=== PATIENT | male | born 1950 | race Two or more races ===

== ENCOUNTER 2024-04-22 11:56 | Inpatient (IN) | payer MEDICARE, MEDICAID ==
[2024-04-22] VITALS (7 sets, daily range): BP systolic 95–117; BP diastolic 59–97; PULSE 84–118; RESP 18–22; TEMP 98–98.8; O2SAT 92–100
[~2024-04-22] VITALS: Ht 175.3 cm; Wt 64.0 kg
[2024-04-22] MEDS: SODIUM CHLORIDE 0.9% 1,000 ML IV ONE ×2 (12:12→13:13)
[2024-04-22 12:23] LABS: ABG BASE EXCESS -1.9 mmol/L (-2.0-3.0); ABG CARBOXYHEMOGLOBIN 0.8 % (0.5-1.5); ABG HCO3 23.1 mmol/L (21.0-28.0); ABG OXYGEN CONTENT 18.6 mL/dL (15.0-23.0); ABG OXYGEN SATURATION 93.2 % (94.0-98.0); ABG OXYHEMOGLOBIN 91.5 % (94.0-98.0); ABG PCO2 37 mmHg (32.0-48.0); ABG PH 7.411 (7.350-7.450); ABG TOTAL HEMOGLOBIN 14.5 G/dL (13.5-17.5); SOURCE, BLOOD GAS ARTERIAL; TEMPERATURE, FAHRENHEIT, BG 97.9 FAHREN (96.0-98.6)
[2024-04-22 12:25] LABS: ABG A-A DIFF O2 614.4 mmHg (10-20.0); ALLEN TEST, BLOOD GAS Positive; INSPIRATORY TIME, BG 0.9 SEC; O2 DEVICE,BLOOD GAS BIPAP (ROOM AIR); PRESSURE SUPPORT, BG 6 cm H2O; SITE, BLOOD GAS RT RADIAL; SPONTANEOUS VT, BG 564 ml
[2024-04-22 12:41] LABS: APPEARANCE,URINE CLEAR (CLEAR); BILIRUBIN,URINE NEGATIVE (NEGATIVE); COLOR,URINE YELLOW (YELLOW); GLUCOSE, URINE (UA) NEGATIVE (NEGATIVE); KETONES,URINE NEGATIVE (NEGATIVE); LEUKOCYTE ESTERASE ,URINE NEGATIVE (NEGATIVE); NITRATE,URINE NEGATIVE (NEGATIVE); OCCULT BLOOD,URINE LARGE (NEGATIVE); PH,URINE 6.5 (5.0-8.0); PH,URINE DRUG SCREEN 6.5 (5.0-8.0); PROTEIN,URINE TRACE mg/dL (NEGATIVE); SPECIFIC GRAVITIY, URINE 1.019 (1.003-1.030); UROBILINOGEN,URINE <=1.0 mg/dL (<=1.0)
[2024-04-22 12:43] LABS: BASOPHILS % (AUTO) 0.1 % (0.0-2.0); EOSINOPHILS % (AUTO) 0.1 % (1.0-6.0); HEMATOCRIT 42.5 % (41-53); HEMOGLOBIN 14.1 g/dL (13.5-17.5); LYMPHOCYTES % (AUTO) 5.6 % (22.0-44.0); MEAN CORPUSCULAR HEMOGLOBIN 31.2 pg (26.0-34.0); MEAN CORPUSCULAR HGB CONC 33.2 G/dL (31.0-37.0); MEAN CORPUSCULAR VOLUME 94 fL (80-100); MONOCYTES # (AUTO) 1.9 K/uL (0.1-1.0); MONOCYTES % (AUTO) 10.4 % (2.0-9.0); NEUTROPHILS # (AUTO) 15.4 K/uL (1.8-7.7); NEUTROPHILS % (AUTO) 83.8 % (40.0-70.0); PLATELET COUNT (AUTO) 347 K/uL (150-450); RED BLOOD CELL COUNT(AUTO) 4.53 MIL/uL (4.50-5.90); RED CELL DISTRIBUTION WIDTH 15.3 % (11.5-14.5); WHITE BLOOD COUNT (AUTO) 18.4 K/uL (4.5-11.0)
[2024-04-22 12:48] LABS: ALCOHOL, URINE DRUG SCREEN NEGATIVE (NEGATIVE); AMPHET/METH SCREEN,URINE NEGATIVE (NEGATIVE); BARBITURATE SCREEN, URINE NEGATIVE (NEGATIVE); BENZODIAZEPINES SCREEN,URINE NEGATIVE (NEGATIVE); CANNABINOID SCREEN,URINE NEGATIVE (NEGATIVE); COCAINE SCREEN,URINE NEGATIVE (NEGATIVE); METHADONE SCREEN, URINE NEGATIVE (NEGATIVE); OPIATE SCREEN,URINE NEGATIVE (NEGATIVE); PHENCYCLIDINE SCREEN,URINE NEGATIVE (NEGATIVE)
[2024-04-22 13:01] LABS: ANION GAP 8 mmol/L (8-16); CARBON DIOXIDE 30 mmol/L (22-29); CHLORIDE 103 mmol/L (98-107); CREATININE 1.57 mg/dL (0.60-1.30); GLOMERULAR FILTR. RATE CALC 44 mL/min (>60); GLUCOSE,RANDOM 184 mg/dL (70-110); POTASSIUM 4.8 mmol/L (3.5-5.1); SODIUM SERUM 141 mmol/L (136-145); UREA NITROGEN, BLOOD 41 mg/dL (7-18)
[2024-04-22 13:06] LABS: TROPONIN I-HIGH SENSITIVITY 12 ng/L (<76)
[2024-04-22 13:07] LABS: ALANINE AMINOTRANSFERASE 29 U/L (12-78); ALBUMIN 3.2 g/dL (3.4-5.0); ALKALINE PHOSPHATASE 76 U/L (46-116); ASPARTATE AMINOTRANSFERASE 23 U/L (15-37); BILIRUBIN,TOTAL 0.7 mg/dL (0.1-1.0); TOTAL PROTEIN, SERUM 6.9 g/dL (6.4-8.2)
[2024-04-22] MEDS: CEFEPIME HCL 1 GM in DEXTROSE 5%-WATER 50 ML IV ONE (13:11)
[2024-04-22 13:16] LABS: WBC,URINE None Seen /HPF (0-5)
[2024-04-22 13:17] LABS: BACTERIA,URINE None Seen /HPF (None Seen); RBC,URINE 26-50 /HPF (0-2)
[2024-04-22 13:17] LABS: LACTIC ACID 1.8 mmol/L (0.4-2.0)
[2024-04-22] MEDS: ACETAMINOPHEN 650 MG RECTAL SUPPOSITORY PR ONE (14:31)
[2024-04-22] MEDS ORDERED: BISACODYL 10 MG RECTAL RECTAL SUPPOSITORY PR PRN (17:45)
[2024-04-22] MEDS ORDERED: ACETAMINOPHEN 325 MG TABLET PO PRN (17:45)
[2024-04-22] MEDS ORDERED: ZOLPIDEM TARTRATE 5 MG TABLET PEG PRN (17:45)
[2024-04-22] MEDS ORDERED: MORPHINE SULFATE 2 MG/ML SYRINGE IVP PRN (17:45)
[2024-04-22] MEDS ORDERED: HYDROCODONE/ACETAMINOPHEN 5-325 MG TABLET PO PRN (17:45)
[2024-04-22] MEDS ORDERED: MAGNESIUM HYDROXIDE SUSPENSION 30 ML UDCUP PEG PRN (17:45)
[2024-04-22] MEDS ORDERED: ONDANSETRON HCL 4 MG/2 ML VIAL IVP PRN (17:45)
[2024-04-22] MEDS ORDERED: NA P133E8 PR (17:47)
[2024-04-22] MEDS ORDERED: ATOR20TA PO (17:47)
[2024-04-22] MEDS ORDERED: BISA-151 PO (17:47)
[2024-04-22] MEDS ORDERED: HYDR10TA31 PO (17:47)
[2024-04-22] MEDS ORDERED: ACET650S24 PR (17:47)
[2024-04-22] MEDS ORDERED: ACET325S20 PR (17:47)
[2024-04-22] MEDS ORDERED: ASPI-1450 PO (17:47)
[2024-04-22] MEDS ORDERED: TUBE5VIA TD (17:47)
[2024-04-22] MEDS ORDERED: HYDR25TA84 PO (17:47)
[2024-04-22] MEDS ORDERED: MAGN-169 PO (17:47)
[2024-04-22] MEDS ORDERED: APIX5TAB PO (17:47)
[2024-04-22] MEDS: SODIUM CHLORIDE 0.9% 1,000 ML IV SCH (18:43)
[2024-04-22] MEDS: SODIUM CHLORIDE 0.9% 250 ML IV ONE (18:44)
[2024-04-22] MEDS: SODIUM CHLORIDE 0.9% 500 ML IV ONE ×2 (18:45→20:03)
[2024-04-22] MEDS: PIPERACILLIN/TAZO 3.375 GM/D5W 50 ML IV SCH (20:03)
[2024-04-22] MEDS: VANCOMYCIN 1.25 GM/WATER(PEG) 250 ML IV ONE (20:04)
[2024-04-22] MEDS: APIXABAN 5 MG TABLET PEG SCH (20:18)
[2024-04-22] MEDS: DOCUSATE SODIUM 100 MG CAPSULE PEG SCH (20:18)
[2024-04-22] MEDS: ATORVASTATIN CALCIUM 20 MG TABLET PEG SCH (20:18)
[2024-04-23 03:10] VITALS: BP 107/60; PULSE 88; RESP 20; TEMP 98.6; O2SAT 98
[2024-04-23 06:51] LABS: BASOPHILS % (AUTO) 0.3 % (0.0-2.0); EOSINOPHILS % (AUTO) 1.1 % (1.0-6.0); HEMATOCRIT 33.3 % (41-53); HEMOGLOBIN 11.4 g/dL (13.5-17.5); LYMPHOCYTES # (AUTO) 1.9 K/uL (1.0-4.8); LYMPHOCYTES % (AUTO) 13.6 % (22.0-44.0); MEAN CORPUSCULAR HEMOGLOBIN 31.6 pg (26.0-34.0); MEAN CORPUSCULAR HGB CONC 34.2 G/dL (31.0-37.0); MEAN CORPUSCULAR VOLUME 93 fL (80-100); MONOCYTES % (AUTO) 6.8 % (2.0-9.0); NEUTROPHILS # (AUTO) 11.2 K/uL (1.8-7.7); NEUTROPHILS % (AUTO) 78.2 % (40.0-70.0); PLATELET COUNT (AUTO) 270 K/uL (150-450); RED CELL DISTRIBUTION WIDTH 14.6 % (11.5-14.5); WHITE BLOOD COUNT (AUTO) 14.3 K/uL (4.5-11.0)
[2024-04-23 06:57] LABS: ANION GAP 8 mmol/L (8-16); CALCIUM, TOTAL 7.7 mg/dL (8.8-10.5); CARBON DIOXIDE 26 mmol/L (22-29); CHLORIDE 109 mmol/L (98-107); GLOMERULAR FILTR. RATE CALC > 60 mL/min (>60); GLUCOSE,RANDOM 92 mg/dL (70-110); POTASSIUM 3.6 mmol/L (3.5-5.1); SODIUM SERUM 143 mmol/L (136-145); UREA NITROGEN, BLOOD 26 mg/dL (7-18)
[2024-04-23 08:30] VITALS: BP 115/58; PULSE 83; RESP 19; TEMP 98.2; O2SAT 98
[2024-04-23] MEDS: VANCOMYCIN 1GM/WATER(PEG/NADA) 200 ML IV SCH (08:46)
[2024-04-23] MEDS: PANTOPRAZOLE SODIUM 40 MG/VIAL IVP SCH (08:47)
[2024-04-23] MEDS: ASPIRIN 81 MG CHEWABLE TABLET PEG ONE (08:47)
[2024-04-23 12:02] VITALS: BP 102/36; PULSE 77; RESP 18; TEMP 98; O2SAT 96
[2024-04-23 15:49] VITALS: BP 111/61; PULSE 98; RESP 19; TEMP 98.1; O2SAT 100
[2024-04-23 20:00] VITALS: BP 109/71; PULSE 86; RESP 19; TEMP 98; O2SAT 98
[2024-04-23] MEDS: VANCOMYCIN 750 MG/WATER(PEG) 150 ML IV SCH (20:08)
[2024-04-23 23:43] VITALS: BP 127/62; PULSE 78; RESP 19; TEMP 98.3; O2SAT 95
[2024-04-23] MEDS ORDERED: SODIUM CHLORIDE 0.9% 250 ML IV ONE (23:48)
[2024-04-24] VITALS (7 sets, daily range): BP systolic 113–179; BP diastolic 66–99; PULSE 84–99; RESP 18–19; TEMP 97.4–98.2; O2SAT 95–97
[2024-04-24 06:53] LABS: ANION GAP 9 mmol/L (8-16); CALCIUM, TOTAL 7.7 mg/dL (8.8-10.5); CARBON DIOXIDE 26 mmol/L (22-29); CHLORIDE 105 mmol/L (98-107); CREATININE 0.86 mg/dL (0.60-1.30); GLOMERULAR FILTR. RATE CALC > 60 mL/min (>60); GLUCOSE,RANDOM 104 mg/dL (70-110); POTASSIUM 3.4 mmol/L (3.5-5.1); SODIUM SERUM 140 mmol/L (136-145); UREA NITROGEN, BLOOD 17 mg/dL (7-18)
[2024-04-24] MEDS: POTASSIUM CHLORIDE 10% 40 MEQ/30 ML LIQUID UDCUP PEG ONE (08:53)
[2024-04-24 13:46] LABS: BASOPHILS % (AUTO) 0.9 % (0.0-2.0); EOSINOPHILS % (AUTO) 4.6 % (1.0-6.0); HEMATOCRIT 35.4 % (41-53); HEMOGLOBIN 11.9 g/dL (13.5-17.5); LYMPHOCYTES # (AUTO) 1.7 K/uL (1.0-4.8); LYMPHOCYTES % (AUTO) 13.7 % (22.0-44.0); MEAN CORPUSCULAR HEMOGLOBIN 31.1 pg (26.0-34.0); MEAN CORPUSCULAR HGB CONC 33.5 G/dL (31.0-37.0); MEAN CORPUSCULAR VOLUME 93 fL (80-100); MONOCYTES # (AUTO) 1.1 K/uL (0.1-1.0); MONOCYTES % (AUTO) 8.7 % (2.0-9.0); NEUTROPHILS # (AUTO) 8.8 K/uL (1.8-7.7); NEUTROPHILS % (AUTO) 72.1 % (40.0-70.0); PLATELET COUNT (AUTO) 323 K/uL (150-450); RED BLOOD CELL COUNT(AUTO) 3.81 MIL/uL (4.50-5.90); RED CELL DISTRIBUTION WIDTH 14.8 % (11.5-14.5); WHITE BLOOD COUNT (AUTO) 12.2 K/uL (4.5-11.0)
[2024-04-25] VITALS (9 sets, daily range): BP systolic 120–161; BP diastolic 69–87; PULSE 92–100; RESP 18–22; TEMP 97.3–98.8; O2SAT 91–96
[2024-04-25 06:48] LABS: ANION GAP 9 mmol/L (8-16); CALCIUM, TOTAL 8.1 mg/dL (8.8-10.5); CARBON DIOXIDE 26 mmol/L (22-29); CHLORIDE 104 mmol/L (98-107); CREATININE 0.75 mg/dL (0.60-1.30); GLOMERULAR FILTR. RATE CALC > 60 mL/min (>60); GLUCOSE,RANDOM 117 mg/dL (70-110); POTASSIUM 3.4 mmol/L (3.5-5.1); SODIUM SERUM 139 mmol/L (136-145); UREA NITROGEN, BLOOD 10 mg/dL (7-18)
[2024-04-25 07:02] LABS: VANCOMYCIN,RANDOM 10.4 mcg/mL (25.0-50.0)
[2024-04-25] MEDS: POTASSIUM CHLORIDE 10% 40 MEQ/30 ML LIQUID UDCUP PEG ONE ×2 (08:40→11:38)
[2024-04-25 10:03] LABS: BASOPHILS % (AUTO) 0.5 % (0.0-2.0); EOSINOPHILS % (AUTO) 3.4 % (1.0-6.0); HEMATOCRIT 40.1 % (41-53); HEMOGLOBIN 13.6 g/dL (13.5-17.5); LYMPHOCYTES # (AUTO) 1.4 K/uL (1.0-4.8); LYMPHOCYTES % (AUTO) 10.6 % (22.0-44.0); MEAN CORPUSCULAR HEMOGLOBIN 31.4 pg (26.0-34.0); MEAN CORPUSCULAR HGB CONC 33.9 G/dL (31.0-37.0); MEAN CORPUSCULAR VOLUME 93 fL (80-100); MONOCYTES # (AUTO) 1.4 K/uL (0.1-1.0); MONOCYTES % (AUTO) 10.5 % (2.0-9.0); NEUTROPHILS # (AUTO) 9.8 K/uL (1.8-7.7); PLATELET COUNT (AUTO) 383 K/uL (150-450); RED BLOOD CELL COUNT(AUTO) 4.33 MIL/uL (4.50-5.90); RED CELL DISTRIBUTION WIDTH 14.3 % (11.5-14.5); WHITE BLOOD COUNT (AUTO) 13.1 K/uL (4.5-11.0)
[2024-04-25 10:17] LABS: ALANINE AMINOTRANSFERASE 110 U/L (12-78); ALBUMIN 2.6 g/dL (3.4-5.0); ALKALINE PHOSPHATASE 71 U/L (46-116); ASPARTATE AMINOTRANSFERASE 53 U/L (15-37); BILIRUBIN,TOTAL 0.9 mg/dL (0.1-1.0); TOTAL PROTEIN, SERUM 6.5 g/dL (6.4-8.2)
[2024-04-25] MEDS: VANCOMYCIN 750 MG/WATER(PEG) 150 ML IV SCH (16:37)
[2024-04-25] MEDS: IPRATROPIUM BROMIDE 0.5 MG/2.5 ML NEB SOLUTION NEB PRN (22:47)
[2024-04-25] MEDS: ALBUTEROL SULFATE 2.5 MG/0.5 ML NEB SOLUTION NEB PRN (22:47)
[2024-04-26 03:49] VITALS: PULSE 114; RESP 32; O2SAT 93
[2024-04-26 04:30] VITALS: BP 134/69; PULSE 122; RESP 20; O2SAT 89
[2024-04-26 07:00] LABS: BASOPHILS % (AUTO) 0.4 % (0.0-2.0); EOSINOPHILS % (AUTO) 0.4 % (1.0-6.0); HEMATOCRIT 38.6 % (41-53); HEMOGLOBIN 13.4 g/dL (13.5-17.5); LYMPHOCYTES # (AUTO) 0.9 K/uL (1.0-4.8); LYMPHOCYTES % (AUTO) 5.4 % (22.0-44.0); MEAN CORPUSCULAR HEMOGLOBIN 31.8 pg (26.0-34.0); MEAN CORPUSCULAR HGB CONC 34.8 G/dL (31.0-37.0); MEAN CORPUSCULAR VOLUME 91 fL (80-100); MONOCYTES # (AUTO) 0.9 K/uL (0.1-1.0); MONOCYTES % (AUTO) 5.9 % (2.0-9.0); NEUTROPHILS # (AUTO) 14.1 K/uL (1.8-7.7); PLATELET COUNT (AUTO) 427 K/uL (150-450); RED BLOOD CELL COUNT(AUTO) 4.22 MIL/uL (4.50-5.90); RED CELL DISTRIBUTION WIDTH 14.4 % (11.5-14.5); WHITE BLOOD COUNT (AUTO) 16.1 K/uL (4.5-11.0)
[2024-04-26 07:05] LABS: NEUTROPHILS % (AUTO) 87.9 % (40.0-70.0)
[2024-04-26 07:18] LABS: ALANINE AMINOTRANSFERASE 84 U/L (12-78); ALBUMIN 2.3 g/dL (3.4-5.0); ALKALINE PHOSPHATASE 67 U/L (46-116); ANION GAP 7 mmol/L (8-16); ASPARTATE AMINOTRANSFERASE 40 U/L (15-37); BILIRUBIN,TOTAL 0.6 mg/dL (0.1-1.0); CALCIUM, TOTAL 8.1 mg/dL (8.8-10.5); CARBON DIOXIDE 23 mmol/L (22-29); CHLORIDE 105 mmol/L (98-107); CREATININE 0.93 mg/dL (0.60-1.30); GLOMERULAR FILTR. RATE CALC > 60 mL/min (>60); GLUCOSE,RANDOM 210 mg/dL (70-110); POTASSIUM 3.6 mmol/L (3.5-5.1); SODIUM SERUM 135 mmol/L (136-145); UREA NITROGEN, BLOOD 18 mg/dL (7-18)
[2024-04-26 07:56] VITALS: BP 101/50; PULSE 88; RESP 18; TEMP 98.7; O2SAT 95
[2024-04-26 12:45] VITALS: O2SAT 97
[2024-04-26 15:38] VITALS: BP 104/58; PULSE 97; RESP 18; TEMP 97.9; O2SAT 91
[2024-04-26] MEDS: METOCLOPRAMIDE HCL 5 MG/ML 2 ML VIAL IVP SCH (15:49)
[2024-04-26 20:22] VITALS: BP 106/62; PULSE 98; RESP 18; TEMP 98.7; O2SAT 94
[2024-04-27 04:00] VITALS: BP 164/78; PULSE 99; RESP 20; TEMP 97.7; O2SAT 95
[2024-04-27 04:22] VITALS: PULSE 105; RESP 20; O2SAT 95
[2024-04-27 07:59] LABS: ANION GAP 7 mmol/L (8-16); CALCIUM, TOTAL 8.2 mg/dL (8.8-10.5); CARBON DIOXIDE 25 mmol/L (22-29); CHLORIDE 105 mmol/L (98-107); CREATININE 0.91 mg/dL (0.60-1.30); GLOMERULAR FILTR. RATE CALC > 60 mL/min (>60); GLUCOSE,RANDOM 158 mg/dL (70-110); POTASSIUM 3.4 mmol/L (3.5-5.1); SODIUM SERUM 137 mmol/L (136-145); UREA NITROGEN, BLOOD 15 mg/dL (7-18); VANCOMYCIN,RANDOM 15.6 mcg/mL (25.0-50.0)
[2024-04-27 08:18] VITALS: BP 91/61; PULSE 98; RESP 20; TEMP 98; O2SAT 95
[2024-04-27 09:34] VITALS: BP 146/69; PULSE 94; O2SAT 94
== END 2024-04-27 15:00 | DRG 871 ==
LOC: EMS 11:56 → EDH 15:50 → 5S 16:50 → 6S 04-25 15:29
PROVIDERS: ADMIT Hospitalist; ATTEND Hospitalist
PROC: 5A09357 Assistance with Respiratory Ventilation, Less than 24 Consecutive Hours, Continuous Positive Airway Pressure (ICD-10-PCS; principal; 2024-04-22)
DX: A41.9 Sepsis, unspecified organism (principal); E43 Unspecified severe protein-calorie malnutrition; J69.0 Pneumonitis due to inhalation of food and vomit; J96.01 Acute respiratory failure with hypoxia; I63.89 Other cerebral infarction; J44.0 Chronic obstructive pulmonary disease with (acute) lower respiratory infection; R47.01 Aphasia; Z68.20 Body mass index [BMI] 20.0-20.9, adult; E87.6 Hypokalemia; K44.9 Diaphragmatic hernia without obstruction or gangrene; D64.9 Anemia, unspecified; J98.4 Other disorders of lung; Z66 Do not resuscitate; Z87.891 Personal history of nicotine dependence; Z93.1 Gastrostomy status; I69.30 Unspecified sequelae of cerebral infarction
CPT/HCPCS: 36600; 51702; 70450; 71045; 71250; 80048; 80053; 80202; 80307; 81001; 82805; 83605; 83880; 84484; 85025; 87040; 92526; 92610; 93005; 94640; 94660; 97163; 97167; 97530; 97535; 99291; C9113; J0692; J2543; J2765; J7030; J7040; J7050; J7060; 36415-L1; 36415-TC; J2471; J7613